=== PATIENT | male | born 1995 | race Two or more races ===

== ENCOUNTER 2019-10-18 10:54 | Emergency (ER) | payer MEDICAID ==
[~2019-10-18] VITALS: Ht 165.1 cm; Wt 84.0 kg
[2019-10-18] MEDS ORDERED: LIDOCAINE HCL/PF 1% 10 MG/ML 5ML VIAL IJ ONE (13:15)
[2019-10-18] MEDS ORDERED: IBUPROFEN 600MG TABLET PO ONE (13:15)
[2019-10-18] MEDS ORDERED: TETANUS, DIPHTHERIA, PERTUSSIS VAC/PF 0.5ML (>7YR OLD) IM ONE (13:15)
[2019-10-18] MEDS ORDERED: BACITRACIN ZINC OINT UDPKT TOP ONE (13:15)
[2019-10-18 14:07] VITALS: BP 119/78
== END 2019-10-18 14:08 | disposition home or self-care (01) ==
LOC: ER 10:58
DX: S81.812A Laceration without foreign body, left lower leg, initial encounter (principal); W20.8XXA Other cause of strike by thrown, projected or falling object, initial encounter; Y93.89 Activity, other specified; Y92.89 Other specified places as the place of occurrence of the external cause; Y99.0 Civilian activity done for income or pay; Z23 Encounter for immunization
CPT/HCPCS: 12002; 90471; 90715; 99283; J3490

== ENCOUNTER 2019-10-29 09:43 | Emergency (ER) | payer SELFPAY ==
[~2019-10-29] VITALS: Ht 167.6 cm; Wt 68.0 kg
[2019-10-29 10:02] VITALS: BP 124/69
== END 2019-10-29 11:18 | disposition home or self-care (01) ==
LOC: ER 09:43
DX: Z48.02 Encounter for removal of sutures (principal)
CPT/HCPCS: 99281; Z7610